=== PATIENT | male | born 1930 | race Caucasian/White ===

== ENCOUNTER 2017-01-30 22:46 | Emergency (ER) | payer OTHER ==
[~2017-01-30] VITALS: Ht 177.8 cm; Wt 77.1 kg
[~2017-01-30 22:46] MED LIST: ALPR0.5T7 PO; ATE50T PO; ATOR20TA50 PO; CLOP75TA41 PO; DOXA1TAB42 PO; FINA5TAB4 PO; GLIP-115 PO; ISOS30TA4 PO; LIS5T GT; METF-370 PO; OXAZEPAM PO; OXYB5TAB62 PO; PANT1INJ3 PO; TAMS0.4C36 PO; WARF5TAB71 PO
[2017-01-30] MEDS ORDERED: SODIUM CHLORIDE 0.9% 1,000 ML IVB ONE (22:55)
[2017-01-30] MEDS ORDERED: DIGOXIN (250MCG/ML) 2 ML AMPULE IV ONE (23:00)
[2017-01-30 23:11] LABS: Basophils # (auto) 0.1 uL; Basophils % (auto) 0.7 % (0.0-2.0); Eosinophils # (auto) 0.5 uL; Eosinophils % (auto) 6.1 % (0.0-7.0); Hemoglobin 13.7 g/dL (13.5-17.5); Lymphocytes # (auto) 2.7 uL; Lymphocytes % (auto) 33.5 % (10.0-50.0); Mean Corpuscular Hemoglobin 24.4 pg (28.0-32.0); Mean Corpuscular Hgb Conc. 31.8 g/dL (32.0-36.0); Monocytes # (auto) 0.7 uL; Monocytes % (auto) 8.9 % (0.0-12.0); Neutrophils # (auto) 4.2 uL; Neutrophils % (auto) 50.8 % (37.0-80.0); Nucleated Red Blood Cells % 0.1 %; Platelet Count (auto) 176 10^3/uL (140-450); Red Blood Cells 5.59 10^6/uL (4.5-5.90); Red Cell Distribution Width 18.1 % (11.8-14.3); White Blood Cell 8.2 10^3/uL (4.4-10.8)
[2017-01-30 23:26] LABS: Partial Thromboplastin Time 26.1 sec (22.64-33.71); Prothrombin Time 10.9 sec (9.37-12.3)
[2017-01-30 23:27] LABS: Albumin 3.8 g/dL (3.4-5.0); BUN/Creatinine Ratio 14.3; Magnesium 2.4 mg/dL (1.6-2.6); Potassium 3.7 mmol/L (3.5-5.1)
[2017-01-30 23:32] LABS: Bilirubin, Total 0.5 mg/dL (0.2-1.0); Total Protein 7.8 g/dL (6.4-8.2)
[2017-01-30] MEDS ORDERED: ASPirin 325 MG TAB ONE (23:50)
[2017-01-30 23:59] LABS: Urine Bacteria MANY /hpf (None Seen); Urine Blood 2+ /uL (Negative); Urine Mucus FEW (None Seen); Urine Specific Gravity 1.017 (1.001-1.035); Urine WBC 732 /hpf (0 - 3); Urine WBC Clumps PRESENT /hpf (None Seen)
[2017-01-31] MEDS ORDERED: ASPirin 325 MG TAB PO ONE (00:15)
[2017-01-31 00:33] LABS: Amylase 56 U/L (25-115); Lipase 261 U/L (73-393)
[2017-01-31] MEDS ORDERED: cefTRIAXone 1GM/10ml IVPUSH 10 ML IV ONE (02:00)
[2017-01-31 06:21] VITALS: BP 119/62
== END 2017-01-31 06:50 | disposition home or self-care (01) ==
LOC: EDBD 22:46 → ER 22:54
DX: R07.9 Chest pain, unspecified (principal); N39.0 Urinary tract infection, site not specified; E03.9 Hypothyroidism, unspecified; R00.2 Palpitations; K21.9 Gastro-esophageal reflux disease without esophagitis; J44.9 Chronic obstructive pulmonary disease, unspecified; I48.91 Unspecified atrial fibrillation; I25.2 Old myocardial infarction; I25.10 Atherosclerotic heart disease of native coronary artery without angina pectoris; I10 Essential (primary) hypertension; E11.9 Type 2 diabetes mellitus without complications; E78.5 Hyperlipidemia, unspecified; Z90.49 Acquired absence of other specified parts of digestive tract; Z86.73 Personal history of transient ischemic attack (TIA), and cerebral infarction without residual deficits; Z95.1 Presence of aortocoronary bypass graft; Z79.82 Long term (current) use of aspirin
CPT/HCPCS: 36415; 51702; 71010; 80053; 81001; 82150; 83690; 83735; 83880; 84443; 84484; 85025; 85379; 85610; 85730; 87040; 94761; 96361; 96374; 96375; 99285; J1160; J7030